=== PATIENT | male | born 1990 ===

== ENCOUNTER 2018-12-19 07:53 | Inpatient (IN) | payer MEDICAID ==
[~2018-12-19] VITALS: Ht 160 cm; Wt 74.0 kg
[~2018-12-19 07:53] MED LIST: ACET325T14 PO; PANT40TA5 PO; SUCR1TAB33 PO
[2018-12-19] MEDS ORDERED: ONDANSETRON 2MG/ML, 2ML ONE (08:22)
[2018-12-19] MEDS ORDERED: MORPHINE SULFATE 4 MG/ML, 1ML ONE ×2 (08:23→09:23)
[2018-12-19] MEDS: MORPHINE SULFATE 4 MG/ML, 1ML IVPush PRN ×6 (08:25→21:25)
[2018-12-19] MEDS ORDERED: ONDANSETRON 2MG/ML, 2ML IVPush ONE (08:30)
[2018-12-19] MEDS ORDERED: SODIUM CHLORIDE FLUSH 10ML SYR IVF ONE ×2 (08:30→10:00)
[2018-12-19 08:35] LABS: BASOPHILS # (AUTO) 0.07 x10^3/uL (0-0.1); BASOPHILS % (AUTO) 1 % (0-1); EOSINOPHILS # (AUTO) 0.02 x10^3/uL (0-0.4); EOSINOPHILS % (AUTO) 0 % (1-7); LYMPHOCYTES # (AUTO) 1.31 x10^3/uL (1-3.4); LYMPHOCYTES % (AUTO) 20 % (22-44); MD NO; MEAN CORPUSCULAR HEMOGLOBIN 29.3 pg (27.5-34.5); MEAN CORPUSCULAR HGB CONC 33.3 g/dL (33.2-36.2); MEAN PLATELET VOLUME 9.4 fL (7.4-10.4); MONOCYTES # (AUTO) 0.24 x10^3/uL (0.2-0.8); MONOCYTES % (AUTO) 4 % (2-9); NEUTROPHILS # (AUTO) 4.93 x10^3/uL (1.8-6.8); NEUTROPHILS % (AUTO) 75 % (42-75); PLATELET COUNT 251 x10^3/uL (130-400); RED BLOOD COUNT 5.57 x10^6/uL (4.38-5.82); RED CELL DISTRIBUTION WIDTH 13.5 % (9.4-14.8)
[2018-12-19 08:42] LABS: INTERNATIONAL NORMALIZED RATIO 0.97 (0.93-1.1); PROTHROMBIN TIME 10.2 Seconds (9.6-11.5)
[2018-12-19 08:46] LABS: ALANINE AMINOTRANSFERASE 56 U/L (12-78); ALBUMIN 4.4 g/dL (3.4-5.0); ANION GAP 12 mmol/L (5-15); CALCIUM 8.9 mg/dL (8.5-10.1); CHLORIDE 103 mmol/L (98-107); CREATININE 1.09 mg/dL (0.7-1.3)
[2018-12-19 08:48] LABS: ALKALINE PHOSPHATASE 107 U/L (45-117); BILIRUBIN,TOTAL 0.5 mg/dL (0.2-1.0); TOTAL PROTEIN 8.6 g/dL (6.4-8.2)
[2018-12-19] MEDS ORDERED: HYDROmorphone 2 MG/ML, 1ML IVPush PRN (10:00)
[2018-12-19] MEDS ORDERED: HYDROmorphone 1 MG/ML, 1ML VIAL ONE (10:13)
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
[2018-12-19 11:03] VITALS: BP 128/93
[2018-12-19] MEDS ORDERED: LABETALOL 5 MG/ML SYRINGE IVPush PRN (12:00)
[2018-12-19] MEDS ORDERED: POLYETHYLENE GLYCOL 17 GM PACKET PO PRN (12:00)
[2018-12-19] MEDS: SENNA/DOCUSATE TABLET PO SCH (12:00)
[2018-12-19] MEDS ORDERED: ONDANSETRON ODT 4 MG PO PRN (12:00)
[2018-12-19] MEDS ORDERED: LORazepam 1MG TABLET PO PRN ×3 (12:30)
[2018-12-19] MEDS ORDERED: CHLORDIAZEPOXIDE 25 MG CAPSULE PO PRN (12:30)
[2018-12-19] MEDS ORDERED: LORazepam 2 MG/ML, 1ML IV PRN ×3 (12:30)
[2018-12-19] MEDS: ONDANSETRON 2MG/ML, 2ML IVPush PRN (12:36)
[2018-12-19 12:45] LABS: FREE T4 (FREE THYROXINE) 0.92 ng/dL (0.76-1.46)
[2018-12-19] MEDS: POTASSIUM CHLORIDE 20 MEQ, MAGNESIUM SULFATE 1 GM, FOLIC ACID 1 MG, THIAMINE 200 MG, MV... IV SCH (13:03)
[2018-12-19] MEDS: LORazepam 2 MG/ML, 1ML IV PRN ×3 (13:14→21:34)
[2018-12-19 15:20] VITALS: BP 128/74
[2018-12-19 18:46] VITALS: BP 152/87
[2018-12-19] MEDS: D5%-LR+KCL 20MEQ 1,000 ML IV SCH (21:34)
[2018-12-20] MEDS: MORPHINE SULFATE 4 MG/ML, 1ML IVPush PRN ×6 (00:43→19:28)
[2018-12-20 00:50] VITALS: BP 165/95
[2018-12-20] MEDS: LORazepam 2 MG/ML, 1ML IV PRN (01:35)
[2018-12-20] MEDS: D5%-LR+KCL 20MEQ 1,000 ML IV SCH ×3 (04:05→22:21)
[2018-12-20 06:05] LABS: ALBUMIN 3.8 g/dL (3.4-5.0); ANION GAP 8 mmol/L (5-15); CALCIUM 9.1 mg/dL (8.5-10.1); CHLORIDE 106 mmol/L (98-107)
[2018-12-20 06:17] LABS: ALANINE AMINOTRANSFERASE 50 U/L (12-78); ALKALINE PHOSPHATASE 89 U/L (45-117); BILIRUBIN,TOTAL 1.3 mg/dL (0.2-1.0); CREATININE 0.94 mg/dL (0.7-1.3); TOTAL PROTEIN 7.5 g/dL (6.4-8.2)
[2018-12-20 06:18] LABS: BASOPHILS # (AUTO) 0.02 x10^3/uL (0-0.1); BASOPHILS % (AUTO) 0 % (0-1); EOSINOPHILS % (AUTO) 0 % (1-7); LYMPHOCYTES % (AUTO) 7 % (22-44); MD NO; MEAN CORPUSCULAR HEMOGLOBIN 29.4 pg (27.5-34.5); MEAN CORPUSCULAR VOLUME 89.1 fL (81-97); MEAN PLATELET VOLUME 9.4 fL (7.4-10.4); MONOCYTES # (AUTO) 0.54 x10^3/uL (0.2-0.8); MONOCYTES % (AUTO) 6 % (2-9); NEUTROPHILS # (AUTO) 8.23 x10^3/uL (1.8-6.8); NEUTROPHILS % (AUTO) 87 % (42-75); PLATELET COUNT 186 x10^3/uL (130-400); RED BLOOD COUNT 5.41 x10^6/uL (4.38-5.82); RED CELL DISTRIBUTION WIDTH 13.5 % (9.4-14.8)
[2018-12-20 07:03] VITALS: BP 145/93
[2018-12-20] MEDS: SENNA/DOCUSATE TABLET PO SCH (07:54)
[2018-12-20] MEDS: ONDANSETRON 2MG/ML, 2ML IVPush PRN (08:11)
[2018-12-20] MEDS ORDERED: ESOMEPRAZOLE 40 MG IV IVPush SCH ×2 (09:00→17:00)
[2018-12-20 11:58] VITALS: BP 144/83
[2018-12-20] MEDS: POTASSIUM CHLORIDE 20 MEQ, MAGNESIUM SULFATE 1 GM, FOLIC ACID 1 MG, THIAMINE 200 MG, MV... IV SCH (12:42)
[2018-12-20 13:25] VITALS: BP 139/89
[2018-12-20] MEDS ORDERED: PANTOPRAZOLE 40 MG IV IVPush SCH (14:00)
[2018-12-20] MEDS ORDERED: OMNIPAQUE 350 MG/ML, 100ML BOTTLE ONE (14:07)
[2018-12-20 19:05] VITALS: BP 135/82
[2018-12-20] MEDS: CHLORDIAZEPOXIDE 25 MG CAPSULE PO SCH (20:25)
[2018-12-20] MEDS: PANTOPRAZOLE 40 MG IV IVPush SCH (20:25)
[2018-12-21] MEDS: LORazepam 2 MG/ML, 1ML IV PRN ×2 (00:31→04:12)
[2018-12-21] MEDS: MORPHINE SULFATE 4 MG/ML, 1ML IVPush PRN ×6 (00:31→23:31)
[2018-12-21 01:25] VITALS: BP 153/89
[2018-12-21] MEDS: D5%-LR+KCL 20MEQ 1,000 ML IV SCH ×3 (04:04→23:24)
[2018-12-21 04:53] LABS: BASOPHILS # (AUTO) 0.03 x10^3/uL (0-0.1); BASOPHILS % (AUTO) 0 % (0-1); EOSINOPHILS # (AUTO) 0.19 x10^3/uL (0-0.4); EOSINOPHILS % (AUTO) 2 % (1-7); LYMPHOCYTES # (AUTO) 1.16 x10^3/uL (1-3.4); LYMPHOCYTES % (AUTO) 15 % (22-44); MD NO; MEAN CORPUSCULAR HGB CONC 33.2 g/dL (33.2-36.2); MEAN CORPUSCULAR VOLUME 90.3 fL (81-97); MEAN PLATELET VOLUME 9.7 fL (7.4-10.4); MONOCYTES # (AUTO) 0.43 x10^3/uL (0.2-0.8); MONOCYTES % (AUTO) 6 % (2-9); NEUTROPHILS # (AUTO) 5.99 x10^3/uL (1.8-6.8); NEUTROPHILS % (AUTO) 77 % (42-75); PLATELET COUNT 153 x10^3/uL (130-400); RED BLOOD COUNT 4.72 x10^6/uL (4.38-5.82); RED CELL DISTRIBUTION WIDTH 13.3 % (9.4-14.8)
[2018-12-21 05:08] LABS: ANION GAP 3 mmol/L (5-15); CALCIUM 8.3 mg/dL (8.5-10.1); CHLORIDE 103 mmol/L (98-107)
[2018-12-21 05:14] LABS: ALANINE AMINOTRANSFERASE 30 U/L (12-78); ALKALINE PHOSPHATASE 75 U/L (45-117); BILIRUBIN,TOTAL 1.4 mg/dL (0.2-1.0); TOTAL PROTEIN 6.1 g/dL (6.4-8.2)
[2018-12-21 07:07] VITALS: BP 146/91
[2018-12-21] MEDS: PANTOPRAZOLE 40 MG IV IVPush SCH ×2 (09:05→21:05)
[2018-12-21] MEDS: CHLORDIAZEPOXIDE 25 MG CAPSULE PO SCH ×2 (09:06→21:05)
[2018-12-21] MEDS: SENNA/DOCUSATE TABLET PO SCH (09:06)
[2018-12-21 12:52] VITALS: BP 133/89
[2018-12-21] MEDS: POTASSIUM CHLORIDE 20 MEQ, MAGNESIUM SULFATE 1 GM, FOLIC ACID 1 MG, THIAMINE 200 MG, MV... IV SCH (15:09)
[2018-12-21 18:44] VITALS: BP 117/73
[2018-12-21] MEDS: LORazepam 1MG TABLET PO PRN (19:38)
[2018-12-22] MEDS: LORazepam 0.5MG TABLET PO PRN ×2 (01:40→11:43)
[2018-12-22 01:55] VITALS: BP 125/75
[2018-12-22] MEDS: MORPHINE SULFATE 4 MG/ML, 1ML IVPush PRN ×5 (04:43→21:20)
[2018-12-22] MEDS: D5%-LR+KCL 20MEQ 1,000 ML IV SCH ×3 (05:34→17:18)
[2018-12-22 06:05] LABS: BASOPHILS # (AUTO) 0.02 x10^3/uL (0-0.1); BASOPHILS % (AUTO) 0 % (0-1); EOSINOPHILS # (AUTO) 0.39 x10^3/uL (0-0.4); EOSINOPHILS % (AUTO) 7 % (1-7); LYMPHOCYTES # (AUTO) 1.15 x10^3/uL (1-3.4); LYMPHOCYTES % (AUTO) 19 % (22-44); MD NO; MEAN CORPUSCULAR HEMOGLOBIN 29.5 pg (27.5-34.5); MEAN CORPUSCULAR HGB CONC 33.3 g/dL (33.2-36.2); MEAN CORPUSCULAR VOLUME 88.8 fL (81-97); MEAN PLATELET VOLUME 9.8 fL (7.4-10.4); MONOCYTES # (AUTO) 0.45 x10^3/uL (0.2-0.8); MONOCYTES % (AUTO) 8 % (2-9); NEUTROPHILS # (AUTO) 3.93 x10^3/uL (1.8-6.8); NEUTROPHILS % (AUTO) 66 % (42-75); PLATELET COUNT 150 x10^3/uL (130-400); RED BLOOD COUNT 4.36 x10^6/uL (4.38-5.82); RED CELL DISTRIBUTION WIDTH 13.5 % (9.4-14.8)
[2018-12-22 06:09] LABS: CHLORIDE 104 mmol/L (98-107)
[2018-12-22 06:16] LABS: ALANINE AMINOTRANSFERASE 29 U/L (12-78); ALBUMIN 2.9 g/dL (3.4-5.0); ALKALINE PHOSPHATASE 76 U/L (45-117); ANION GAP 6 mmol/L (5-15); BILIRUBIN,TOTAL 0.9 mg/dL (0.2-1.0); CALCIUM 8.4 mg/dL (8.5-10.1); CREATININE 0.82 mg/dL (0.7-1.3); TOTAL PROTEIN 6.7 g/dL (6.4-8.2)
[2018-12-22 07:58] VITALS: BP 119/72
[2018-12-22] MEDS: PANTOPRAZOLE 40 MG IV IVPush SCH (08:32)
[2018-12-22] MEDS: CHLORDIAZEPOXIDE 25 MG CAPSULE PO SCH ×2 (08:33→09:00)
[2018-12-22] MEDS: SENNA/DOCUSATE TABLET PO SCH (08:33)
[2018-12-22 12:37] VITALS: BP 135/72
[2018-12-22] MEDS: POTASSIUM CHLORIDE 20 MEQ, MAGNESIUM SULFATE 1 GM, FOLIC ACID 1 MG, THIAMINE 200 MG, MV... IV SCH (15:31)
[2018-12-22] MEDS: PANTOPROZOLE 40MG TABLET PO SCH (17:47)
[2018-12-22 20:15] VITALS: BP 112/73
[2018-12-22] MEDS: LORazepam 1MG TABLET PO PRN (21:31)
[2018-12-23] MEDS: D5%-LR+KCL 20MEQ 1,000 ML IV SCH ×3 (00:43→17:52)
[2018-12-23] MEDS: MORPHINE SULFATE 4 MG/ML, 1ML IVPush PRN ×5 (00:51→21:23)
[2018-12-23 02:38] VITALS: BP 108/72
[2018-12-23 04:46] LABS: BASOPHILS # (AUTO) 0.03 x10^3/uL (0-0.1); BASOPHILS % (AUTO) 1 % (0-1); EOSINOPHILS # (AUTO) 0.38 x10^3/uL (0-0.4); EOSINOPHILS % (AUTO) 8 % (1-7); LYMPHOCYTES # (AUTO) 1.47 x10^3/uL (1-3.4); LYMPHOCYTES % (AUTO) 32 % (22-44); MD NO; MEAN CORPUSCULAR HEMOGLOBIN 29.2 pg (27.5-34.5); MEAN CORPUSCULAR HGB CONC 32.9 g/dL (33.2-36.2); MEAN CORPUSCULAR VOLUME 88.9 fL (81-97); MEAN PLATELET VOLUME 9.5 fL (7.4-10.4); MONOCYTES % (AUTO) 9 % (2-9); NEUTROPHILS # (AUTO) 2.29 x10^3/uL (1.8-6.8); NEUTROPHILS % (AUTO) 50 % (42-75); PLATELET COUNT 179 x10^3/uL (130-400); RED BLOOD COUNT 4.67 x10^6/uL (4.38-5.82); RED CELL DISTRIBUTION WIDTH 13.1 % (9.4-14.8)
[2018-12-23 04:57] LABS: ALBUMIN 3.1 g/dL (3.4-5.0); ANION GAP 7 mmol/L (5-15); CALCIUM 8.9 mg/dL (8.5-10.1); CHLORIDE 104 mmol/L (98-107)
[2018-12-23 05:00] LABS: ALANINE AMINOTRANSFERASE 35 U/L (12-78); ALKALINE PHOSPHATASE 83 U/L (45-117); BILIRUBIN,TOTAL 0.5 mg/dL (0.2-1.0); CREATININE 0.77 mg/dL (0.7-1.3)
[2018-12-23] MEDS: PANTOPROZOLE 40MG TABLET PO SCH ×2 (05:52→17:52)
[2018-12-23] MEDS: SENNA/DOCUSATE TABLET PO SCH (07:35)
[2018-12-23] MEDS: CHLORDIAZEPOXIDE 25 MG CAPSULE PO SCH (07:35)
[2018-12-23 07:56] VITALS: BP 121/78
[2018-12-23] MEDS: THIAMINE 100MG TABLET PO SCH (12:04)
[2018-12-23] MEDS: FOLIC ACID 1 MG TABLET PO SCH (12:04)
[2018-12-23] MEDS: LORazepam 1MG TABLET PO PRN ×2 (12:04→21:46)
[2018-12-23 12:15] VITALS: BP 105/64
[2018-12-23 19:54] VITALS: BP 120/84
[2018-12-24 01:22] VITALS: BP 118/78
[2018-12-24] MEDS: MORPHINE SULFATE 4 MG/ML, 1ML IVPush PRN ×4 (01:51→20:02)
[2018-12-24] MEDS: D5%-LR+KCL 20MEQ 1,000 ML IV SCH ×2 (04:39→11:28)
[2018-12-24] MEDS: PANTOPROZOLE 40MG TABLET PO SCH ×2 (05:52→17:53)
[2018-12-24 05:59] LABS: BASOPHILS # (AUTO) 0.02 x10^3/uL (0-0.1); BASOPHILS % (AUTO) 0 % (0-1); EOSINOPHILS # (AUTO) 0.28 x10^3/uL (0-0.4); EOSINOPHILS % (AUTO) 7 % (1-7); LYMPHOCYTES # (AUTO) 1.33 x10^3/uL (1-3.4); LYMPHOCYTES % (AUTO) 32 % (22-44); MD NO; MEAN CORPUSCULAR HEMOGLOBIN 30.2 pg (27.5-34.5); MEAN CORPUSCULAR HGB CONC 33.6 g/dL (33.2-36.2); MEAN CORPUSCULAR VOLUME 90.1 fL (81-97); MEAN PLATELET VOLUME 9.1 fL (7.4-10.4); MONOCYTES # (AUTO) 0.41 x10^3/uL (0.2-0.8); MONOCYTES % (AUTO) 10 % (2-9); NEUTROPHILS # (AUTO) 2.18 x10^3/uL (1.8-6.8); NEUTROPHILS % (AUTO) 52 % (42-75); PLATELET COUNT 203 x10^3/uL (130-400); RED BLOOD COUNT 4.58 x10^6/uL (4.38-5.82); RED CELL DISTRIBUTION WIDTH 13.4 % (9.4-14.8)
[2018-12-24 06:03] LABS: ALBUMIN 3.2 g/dL (3.4-5.0); ANION GAP 4 mmol/L (5-15); CALCIUM 9.1 mg/dL (8.5-10.1); CHLORIDE 106 mmol/L (98-107)
[2018-12-24 06:07] LABS: ALANINE AMINOTRANSFERASE 47 U/L (12-78); ALKALINE PHOSPHATASE 92 U/L (45-117); BILIRUBIN,TOTAL 0.3 mg/dL (0.2-1.0); CREATININE 0.85 mg/dL (0.7-1.3); TOTAL PROTEIN 7.2 g/dL (6.4-8.2)
[2018-12-24] MEDS: CHLORDIAZEPOXIDE 25 MG CAPSULE PO SCH (08:24)
[2018-12-24] MEDS: THIAMINE 100MG TABLET PO SCH (08:24)
[2018-12-24] MEDS: SENNA/DOCUSATE TABLET PO SCH (08:24)
[2018-12-24] MEDS: FOLIC ACID 1 MG TABLET PO SCH (08:24)
[2018-12-24 08:26] VITALS: BP 123/91
[2018-12-24 14:00] VITALS: BP 111/75
[2018-12-24 19:52] VITALS: BP 106/69
[2018-12-24] MEDS ORDERED: CHLORDIAZEPOXIDE 25 MG CAPSULE PO PRN (23:00)
[2018-12-25] MEDS: MORPHINE SULFATE 4 MG/ML, 1ML IVPush PRN ×3 (01:07→10:59)
[2018-12-25 01:44] VITALS: BP 103/69
[2018-12-25] MEDS: D5%-LR+KCL 20MEQ 1,000 ML IV SCH (05:48)
[2018-12-25] MEDS: PANTOPROZOLE 40MG TABLET PO SCH (06:23)
[2018-12-25 07:25] VITALS: BP 104/67
[2018-12-25] MEDS: FOLIC ACID 1 MG TABLET PO SCH (07:36)
[2018-12-25] MEDS: THIAMINE 100MG TABLET PO SCH (07:36)
[2018-12-25] MEDS: SENNA/DOCUSATE TABLET PO SCH (07:36)
[2018-12-25] MEDS ORDERED: PANT40TA5 PO (11:04)
[2018-12-25] MEDS ORDERED: FOLI-17 PO (11:04)
[2018-12-25] MEDS ORDERED: THIA100T67 PO (11:04)
== END 2018-12-25 13:47 | disposition home or self-care (01) | DRG 440 ==
LOC: ED 10:05 → EDIP 11:28 → 3NE 11:49
PROVIDERS: ADMIT Emergency Medicine; ATTEND Emergency Medicine
DX: K85.20 Alcohol induced acute pancreatitis without necrosis or infection (principal); E86.0 Dehydration; F10.10 Alcohol abuse, uncomplicated; F17.210 Nicotine dependence, cigarettes, uncomplicated; K76.0 Fatty (change of) liver, not elsewhere classified; Y90.9 Presence of alcohol in blood, level not specified
CPT/HCPCS: 36415; 99285; J7121; 74177; 76700; 80053; 80307; 83690; 83735; 84100; 84439; 84443; 85025; 85610; 96374; 96375; 96376; G0378; J1170; J2405; J3411; J3475; J3480; Q9967; C9113; J2060; J2270

== ENCOUNTER 2019-09-20 03:35 | Emergency (ER) | payer SELFPAY ==
[~2019-09-20] VITALS: Ht 162.6 cm; Wt 79.8 kg
[~2019-09-20 03:35] MED LIST changes: +FOLI-17 PO; +THIA100T67 PO
[2019-09-20] MEDS ORDERED: SODIUM CHLORIDE FLUSH 10ML SYR IVF ONE (04:00)
[2019-09-20] MEDS ORDERED: SODIUM CHLORIDE 0.9% 1,000ML IVBOLUS ONE (04:00)
[2019-09-20] MEDS ORDERED: ONDANSETRON 2MG/ML, 2ML IVPush ONE (04:00)
[2019-09-20] MEDS ORDERED: THIAMINE 100 MG/ML, 2ML IM ONE (04:00)
[2019-09-20] MEDS ORDERED: LORazepam 2 MG/ML, 1ML IVPush ONE (04:00)
[2019-09-20] MEDS ORDERED: LORazepam 2 MG/ML, 1ML ONE (04:08)
[2019-09-20] MEDS ORDERED: ONDANSETRON 2MG/ML, 2ML ONE (04:08)
[2019-09-20] MEDS ORDERED: THIAMINE 100MG TABLET ONE (04:08)
[2019-09-20 04:24] LABS: ALANINE AMINOTRANSFERASE 48 U/L (12-78); ALBUMIN 3.7 g/dL (3.4-5.0); ANION GAP 8 mmol/L (5-15); CALCIUM 9.1 mg/dL (8.5-10.1); CHLORIDE 104 mmol/L (98-107); CREATININE 0.86 mg/dL (0.7-1.3)
[2019-09-20] MEDS ORDERED: THIAMINE 100 MG/ML, 2ML ONE (04:24)
[2019-09-20 04:25] LABS: BASOPHILS # (AUTO) 0.04 x10^3/uL (0-0.1); BASOPHILS % (AUTO) 1 % (0-1); EOSINOPHILS # (AUTO) 0.13 x10^3/uL (0-0.4); EOSINOPHILS % (AUTO) 3 % (1-7); LYMPHOCYTES # (AUTO) 1.35 x10^3/uL (1-3.4); LYMPHOCYTES % (AUTO) 32 % (22-44); MD NO; MEAN CORPUSCULAR HEMOGLOBIN 30.8 pg (27.5-34.5); MEAN CORPUSCULAR VOLUME 90.8 fL (81-97); MONOCYTES # (AUTO) 0.39 x10^3/uL (0.2-0.8); MONOCYTES % (AUTO) 9 % (2-9); NEUTROPHILS # (AUTO) 2.34 x10^3/uL (1.8-6.8); NEUTROPHILS % (AUTO) 55 % (42-75); PLATELET COUNT 215 x10^3/uL (130-400); RED BLOOD COUNT 4.81 x10^6/uL (4.38-5.82); RED CELL DISTRIBUTION WIDTH 12.5 % (9.4-14.8)
[2019-09-20 04:27] LABS: ALKALINE PHOSPHATASE 80 U/L (45-117); TOTAL PROTEIN 7.8 g/dL (6.4-8.2)
[2019-09-20 04:43] LABS: CULTURE INDICATED? YES; MICROSCOPIC INDICATED
[2019-09-20 04:46] LABS: AMPHETAMINE SCREEN, URINE Negative (Negative); BARBITURATE SCREEN, URINE Negative (Negative); BENZODIAZEPINE SCREEN, URINE Negative (Negative); CANNABINOID SCREEN, URINE Negative (Negative); COCAINE SCREEN, URINE Negative (Negative); METHADONE SCREEN, URINE Negative (Negative); OPIATE SCREEN, URINE Negative (Negative)
[2019-09-20 04:55] VITALS: BP 143/91
--- NOTE | 2019-09-20 04:56 | NUR ---
PT LYING IN BED, PAIN 8/10 BUQ PAIN. MON[address]OR IN PLACE. PROVIDER NOTIFIED.
--- NOTE | 2019-09-20 04:58 | NUR ---
PT TOLERATING FLUIDS. DENIES N/V AT THIS TIME.
== END 2019-09-20 05:09 ==
LOC: ED 05:00
DX: K85.20 Alcohol induced acute pancreatitis without necrosis or infection (principal)
CPT/HCPCS: 36415; 80053; 80307; 81001; 83690; 85025; 87086; 96372; 96374; 96375; 99284; J2060; J2405; J3411; J7030

== ENCOUNTER 2019-09-20 12:35 | Inpatient (IN) | payer OTHER ==
[~2019-09-20] VITALS: Ht 162.6 cm; Wt 79.5 kg
[2019-09-20] MEDS ORDERED: MORPHINE SULFATE 4 MG/ML, 1ML ONE (13:22)
[2019-09-20] MEDS ORDERED: METOCLOPRAMIDE 5 MG/ML, 2ML ONE (13:22)
[2019-09-20] MEDS ORDERED: DIPHENHYDRAMINE 50 MG/ML, 1ML ONE (13:22)
[2019-09-20] MEDS ORDERED: METOCLOPRAMIDE 5 MG/ML, 2ML IVPush ONE (13:30)
[2019-09-20] MEDS ORDERED: DIPHENHYDRAMINE 50 MG/ML, 1ML IVPush ONE (13:30)
[2019-09-20] MEDS ORDERED: SODIUM CHLORIDE FLUSH 10ML SYR IVF ONE (13:30)
[2019-09-20] MEDS ORDERED: LACTATED RINGERS 1,000 ML IVBOLUS ONE (13:30)
[2019-09-20] MEDS ORDERED: MORPHINE SULFATE 4 MG/ML, 1ML IVPush PRN (13:30)
--- NOTE | 2019-09-20 13:42 | NUR ---
pt presents to ED with c/o generalized abd pain, n/v, persistent since dc this am. pt seen seen in this ED and diagnosed with pancreatitis this am. Pt states last drink was 2 days ago, pt binges etoh intermittently. pt c/o cough and runny nose when screened by this RN, pt has coughed once since arrival. mask in place. EDMD Law notified. pt attached to bp and spo2 monitors, call light in reach, report given to JEMMA Leigh.
--- NOTE | 2019-09-20 13:54 | NUR ---
REPORT RECEIVED FROM ALESHIA EASTON. PT MEDICATED PER EMAR. TAKEN TO CT.
[2019-09-20] MEDS ORDERED: OMNIPAQUE 350 MG/ML, 100ML BOTTLE ONE (14:13)
--- NOTE | 2019-09-20 14:23 | NUR ---
PT REPORTS PAIN NOW TOLERABLE AFTER PAIN MEDS. ALL TESTS RESULTED. PT IS UP FOR RECHECK AT THIS TIME.
--- NOTE | 2019-09-20 14:45 | NUR ---
ADMITTING PROVIDER AT BEDSIDE.
[2019-09-20] MEDS ORDERED: LORazepam 0.5MG TABLET PO PRN (15:00)
[2019-09-20] MEDS ORDERED: ACETAMINOPHEN 325 MG TABLET PO PRN (15:00)
[2019-09-20] MEDS ORDERED: LORazepam 1MG TABLET PO PRN ×2 (15:00)
[2019-09-20] MEDS ORDERED: ONDANSETRON ODT 4 MG PO PRN (15:00)
[2019-09-20] MEDS ORDERED: LORazepam 2 MG/ML, 1ML IV PRN ×3 (15:00)
--- NOTE | 2019-09-20 15:17 | NUR ---
PT AMBULATED TO THE BR W/ A STEADY GAIT.
--- NOTE | 2019-09-20 15:29 | NUR ---
ATTEMPT TO GIVE REPORT. JADA UNAVAILABLE AT THIS TIME. WILL CALL ME BACK.
--- NOTE | 2019-09-20 15:51 | NUR ---
REPORT GIVEN TO JADA EASTON. PT IS READY FOR TRANSPORT AT THIS TIME.
[2019-09-20 16:07] VITALS: BP 149/100
[2019-09-20] MEDS: ONDANSETRON 2MG/ML, 2ML IVPush PRN (16:34)
[2019-09-20] MEDS: MORPHINE SULFATE 4 MG/ML, 1ML IV PRN (16:35)
[2019-09-20] MEDS: SODIUM CHLORIDE 0.9% 1,000 ML IV SCH (16:36)
[2019-09-20 19:05] VITALS: BP 147/88
[2019-09-20] MEDS: KETOROLAC 30 MG/1 ML IM PRN (20:02)
[2019-09-21 00:18] VITALS: BP 138/95
[2019-09-21] MEDS: KETOROLAC 30 MG/1 ML IM PRN ×4 (02:56→21:24)
[2019-09-21] MEDS: SODIUM CHLORIDE 0.9% 1,000 ML IV SCH ×2 (05:20→15:31)
[2019-09-21] MEDS: MORPHINE SULFATE 4 MG/ML, 1ML IV PRN ×7 (06:02→23:55)
[2019-09-21 06:07] LABS: CHLORIDE 103 mmol/L (98-107)
[2019-09-21 06:09] LABS: BASOPHILS # (AUTO) 0.03 x10^3/uL (0-0.1); BASOPHILS % (AUTO) 0 % (0-1); EOSINOPHILS # (AUTO) 0.09 x10^3/uL (0-0.4); EOSINOPHILS % (AUTO) 1 % (1-7); LYMPHOCYTES # (AUTO) 1.07 x10^3/uL (1-3.4); LYMPHOCYTES % (AUTO) 14 % (22-44); MD NO; MEAN CORPUSCULAR HEMOGLOBIN 30.7 pg (27.5-34.5); MEAN CORPUSCULAR HGB CONC 33.6 g/dL (33.2-36.2); MEAN CORPUSCULAR VOLUME 91.5 fL (81-97); MEAN PLATELET VOLUME 9.3 fL (7.4-10.4); MONOCYTES # (AUTO) 0.48 x10^3/uL (0.2-0.8); MONOCYTES % (AUTO) 6 % (2-9); NEUTROPHILS # (AUTO) 6.22 x10^3/uL (1.8-6.8); NEUTROPHILS % (AUTO) 79 % (42-75); PLATELET COUNT 192 x10^3/uL (130-400); RED BLOOD COUNT 4.84 x10^6/uL (4.38-5.82); RED CELL DISTRIBUTION WIDTH 13.1 % (9.4-14.8)
[2019-09-21 06:18] LABS: ANION GAP 8 mmol/L (5-15); CALCIUM 8.7 mg/dL (8.5-10.1)
[2019-09-21 07:57] VITALS: BP 160/108
[2019-09-21] MEDS: ONDANSETRON 2MG/ML, 2ML IVPush PRN ×3 (09:26→21:25)
[2019-09-21 12:55] VITALS: BP 148/101
[2019-09-21] MEDS ORDERED: morphine SULFATE 10 MG/ML, 1ML ONE (13:27)
[2019-09-21 18:55] VITALS: BP 139/87
[2019-09-22] MEDS: SODIUM CHLORIDE 0.9% 1,000 ML IV SCH
[2019-09-22 00:55] VITALS: BP 134/84
[2019-09-22] MEDS: MORPHINE SULFATE 4 MG/ML, 1ML IV PRN ×2 (03:30→08:16)
[2019-09-22] MEDS: ONDANSETRON 2MG/ML, 2ML IVPush PRN (03:30)
[2019-09-22] MEDS: KETOROLAC 30 MG/1 ML IM PRN ×3 (03:31→21:26)
[2019-09-22 05:24] LABS: CHLORIDE 107 mmol/L (98-107)
[2019-09-22 05:29] LABS: ANION GAP 10 mmol/L (5-15); CALCIUM 8.4 mg/dL (8.5-10.1); CREATININE 0.74 mg/dL (0.7-1.3)
[2019-09-22] MEDS: LACTATED RINGERS 1,000 ML IV SCH ×3 (08:03→23:45)
[2019-09-22 08:15] VITALS: BP 135/87
[2019-09-22 12:34] VITALS: BP 121/75
[2019-09-22] MEDS: HYDROmorphone 2 MG/ML, 1ML IVPush PRN (17:16)
[2019-09-22 18:47] VITALS: BP 131/80
[2019-09-23 00:13] VITALS: BP 135/74
[2019-09-23] MEDS: HYDROmorphone 2 MG/ML, 1ML IVPush PRN ×3 (01:15→10:18)
[2019-09-23] MEDS: KETOROLAC 30 MG/1 ML IM PRN ×3 (04:55→22:20)
[2019-09-23 05:12] LABS: BASOPHILS % (AUTO) 2 % (0-1); EOSINOPHILS # (AUTO) 0.44 x10^3/uL (0-0.4); EOSINOPHILS % (AUTO) 7 % (1-7); LYMPHOCYTES # (AUTO) 0.91 x10^3/uL (1-3.4); LYMPHOCYTES % (AUTO) 14 % (22-44); MD NO; MEAN CORPUSCULAR HEMOGLOBIN 30.7 pg (27.5-34.5); MEAN CORPUSCULAR VOLUME 90.3 fL (81-97); MEAN PLATELET VOLUME 8.9 fL (7.4-10.4); MONOCYTES # (AUTO) 0.66 x10^3/uL (0.2-0.8); MONOCYTES % (AUTO) 10 % (2-9); NEUTROPHILS # (AUTO) 4.41 x10^3/uL (1.8-6.8); NEUTROPHILS % (AUTO) 68 % (42-75); PLATELET COUNT 158 x10^3/uL (130-400); RED BLOOD COUNT 4.25 x10^6/uL (4.38-5.82); RED CELL DISTRIBUTION WIDTH 12.7 % (9.4-14.8)
[2019-09-23 05:25] LABS: ANION GAP 7 mmol/L (5-15); CALCIUM 8.5 mg/dL (8.5-10.1); CHLORIDE 104 mmol/L (98-107); CREATININE 0.66 mg/dL (0.7-1.3)
[2019-09-23 06:30] VITALS: BP 119/73
[2019-09-23] MEDS: LACTATED RINGERS 1,000 ML IV SCH ×3 (06:35→20:25)
[2019-09-23 14:22] VITALS: BP 138/89
[2019-09-23] MEDS ORDERED: ENOXAPARIN 40 MG/0.4 ML SQ SCH (15:30)
[2019-09-23 18:43] VITALS: BP 143/76
[2019-09-24 00:40] VITALS: BP 138/83
[2019-09-24] MEDS: LACTATED RINGERS 1,000 ML IV SCH ×2 (03:00→08:55)
[2019-09-24] MEDS: HYDROmorphone 2 MG/ML, 1ML IVPush PRN (03:14)
[2019-09-24 04:27] LABS: ALANINE AMINOTRANSFERASE 30 U/L (12-78); ALBUMIN 2.9 g/dL (3.4-5.0); ANION GAP 8 mmol/L (5-15); CALCIUM 9.1 mg/dL (8.5-10.1); CHLORIDE 105 mmol/L (98-107); CREATININE 0.78 mg/dL (0.7-1.3)
[2019-09-24 04:29] LABS: ALKALINE PHOSPHATASE 68 U/L (45-117); BILIRUBIN,TOTAL 0.6 mg/dL (0.2-1.0)
[2019-09-24 07:42] VITALS: BP 135/87
[2019-09-24] MEDS: KETOROLAC 30 MG/1 ML IM PRN (08:55)
== END 2019-09-24 13:34 | disposition home or self-care (01) | DRG 439 ==
LOC: ED 13:36 → EDIP 14:32 → 3N 16:03
PROVIDERS: ADMIT Internal Medicine; ATTEND Internal Medicine
DX: K85.20 Alcohol induced acute pancreatitis without necrosis or infection (principal); E87.1 Hypo-osmolality and hyponatremia; F10.188 Alcohol abuse with other alcohol-induced disorder; E66.9 Obesity, unspecified; G47.00 Insomnia, unspecified; I10 Essential (primary) hypertension; K76.0 Fatty (change of) liver, not elsewhere classified; Z68.30 Body mass index [BMI] 30.0-30.9, adult
CPT/HCPCS: 36415; 74177; 80048; 80053; 83690; 85025; 96374; 96375; 99285; G0378; J1170; J1650; J1885; J2405; Q0162; Q9967; J1200; J2060; J2270; J2765; J7030; J7120

== ENCOUNTER 2020-03-22 22:22 | Emergency (ER) | payer MEDICAID ==
[~2020-03-22] VITALS: Ht 162.6 cm; Wt 79.7 kg
[~2020-03-22 22:22] MED LIST changes: -PANT40TA5 PO; +PANT40TA6 PO
--- NOTE | 2020-03-22 22:48 | NUR ---
NO ANSWER WHEN CALLED FOR ROOM, NEXT PT ROOMED
--- NOTE | 2020-03-22 23:20 | NUR ---
PT AMBULATORY TO ROOM AT THIS TIME,
[2020-03-22] MEDS ORDERED: SODIUM CHLORIDE 0.9% 1,000ML IVBOLUS ONE (23:30)
[2020-03-22] MEDS ORDERED: ONDANSETRON 2MG/ML, 2ML IVPush ONE (23:30)
--- NOTE | 2020-03-22 23:31 | NUR ---
PT TO ED WITH ABDOMINAL PAIN, REPORTS HX OF PANCREATITIS, REPORTS CHRONIC ETOH ABUSE, LAST DRINK X2 HRS AGO. ATTEMPTED ETOH DETOX AT HOME WITHOUT SUCCESS. REQUEST ADMISSION TO [facility]. PT ALSO REPORTS N/V. DENIES ANY OTHER MEDICAL C/O AT THIS TIME. PT PLACED ON MONITORING, CALL LIGHT WITHIN REACH, ALL SAFETY MEASURES IN PLACE.
[2020-03-22] MEDS ORDERED: ONDANSETRON 2MG/ML, 2ML ONE (23:39)
[2020-03-23 00:11] LABS: BASOPHILS # (AUTO) 0.04 x10^3/uL (0-0.1); BASOPHILS % (AUTO) 1 % (0-1); EOSINOPHILS # (AUTO) 0.11 x10^3/uL (0-0.4); EOSINOPHILS % (AUTO) 2 % (1-7); LYMPHOCYTES % (AUTO) 39 % (22-44); MD NO; MEAN CORPUSCULAR HEMOGLOBIN 30.4 pg (27.5-34.5); MEAN CORPUSCULAR HGB CONC 33.3 g/dL (33.2-36.2); MEAN PLATELET VOLUME 9.2 fL (7.4-10.4); MONOCYTES # (AUTO) 0.44 x10^3/uL (0.2-0.8); MONOCYTES % (AUTO) 8 % (2-9); NEUTROPHILS # (AUTO) 2.64 x10^3/uL (1.8-6.8); NEUTROPHILS % (AUTO) 50 % (42-75); PLATELET COUNT 251 x10^3/uL (130-400); RED BLOOD COUNT 4.73 x10^6/uL (4.38-5.82); RED CELL DISTRIBUTION WIDTH 12.6 % (9.4-14.8)
[2020-03-23 00:23] LABS: ALBUMIN 3.6 g/dL (3.4-5.0); ANION GAP 10 mmol/L (5-15); CALCIUM 8.4 mg/dL (8.5-10.1); CHLORIDE 103 mmol/L (98-107)
[2020-03-23 00:25] LABS: CREATININE 1.11 mg/dL (0.7-1.3)
[2020-03-23 00:26] LABS: ALANINE AMINOTRANSFERASE 71 U/L (12-78); ALKALINE PHOSPHATASE 123 U/L (45-117); BILIRUBIN,TOTAL 0.2 mg/dL (0.2-1.0); TOTAL PROTEIN 8.3 g/dL (6.4-8.2)
[2020-03-23 00:53] VITALS: BP 134/76
== END 2020-03-23 01:30 | disposition home or self-care (01) ==
LOC: ED 23:30
DX: F10.220 Alcohol dependence with intoxication, uncomplicated (principal); Z72.9 Problem related to lifestyle, unspecified; F17.210 Nicotine dependence, cigarettes, uncomplicated; R11.0 Nausea; Y90.0 Blood alcohol level of less than 20 mg/100 ml
CPT/HCPCS: 36415; 80053; 80307; 83690; 85025; 96361; 96374; 99283; 99406; J2405; J7030

== ENCOUNTER 2020-05-22 10:14 | Inpatient (IN) | payer MEDICAID ==
[~2020-05-22] VITALS: Ht 162.6 cm; Wt 73.1 kg
[2020-05-22] MEDS ORDERED: ONDANSETRON 2MG/ML, 2ML ONE (11:15)
[2020-05-22] MEDS ORDERED: MORPHINE SULFATE 4 MG/ML, 1ML ONE ×3 (11:15→22:37)
[2020-05-22] MEDS: MORPHINE SULFATE 4 MG/ML, 1ML IVPush PRN ×2 (11:26→14:03)
--- NOTE | 2020-05-22 11:28 | NUR ---
PT WITH C/O LQ ABD PAIN, STARTING AT 0300, PT WITH DRY HEAVES DENIES V/D. PT WITH HX PANCREATITIS, STATES PAIN IS SIMILAR TO THAT PAIN. PT TO BP/CONT PULSE OX. PIV INITIATED, PT MEDICATED PER MARE
[2020-05-22] MEDS ORDERED: SODIUM CHLORIDE 0.9% 1,000ML IVBOLUS ONE (11:30)
[2020-05-22] MEDS ORDERED: ONDANSETRON 2MG/ML, 2ML IVPush ONE (11:30)
[2020-05-22 11:48] LABS: BASOPHILS % (AUTO) 0 % (0-1); EOSINOPHILS % (AUTO) 1 % (1-7); LYMPHOCYTES % (AUTO) 13 % (22-44); MEAN CORPUSCULAR HEMOGLOBIN 30.6 pg (27.5-34.5); MEAN CORPUSCULAR HGB CONC 33.8 g/dL (33.2-36.2); MEAN PLATELET VOLUME 9.6 fL (7.4-10.4); MONOCYTES % (AUTO) 6 % (2-9); NEUTROPHILS % (AUTO) 80 % (42-75); PLATELET COUNT 213 x10^3/uL (130-400); RED BLOOD COUNT 4.63 x10^6/uL (4.38-5.82); RED CELL DISTRIBUTION WIDTH 13.3 % (9.4-14.8)
[2020-05-22 11:53] LABS: MD NO
[2020-05-22 11:58] LABS: ALBUMIN 3.8 g/dL (3.4-5.0); ANION GAP 8 mmol/L (5-15); CALCIUM 9.1 mg/dL (8.5-10.1); CHLORIDE 107 mmol/L (98-107)
[2020-05-22 12:02] LABS: ALANINE AMINOTRANSFERASE 225 U/L (12-78); ALKALINE PHOSPHATASE 95 U/L (45-117); BILIRUBIN,TOTAL 0.5 mg/dL (0.2-1.0); CREATININE 0.87 mg/dL (0.7-1.3); TOTAL PROTEIN 7.9 g/dL (6.4-8.2)
--- NOTE | 2020-05-22 12:04 | NUR ---
TASK RN: US AT BEDSIDE.
--- NOTE | 2020-05-22 13:19 | NUR ---
PT RESTING ON GURFREDY, UDATED ON POC/PLAN FOR ADMISSION AND NPO STATUS. VSS NO NEEDS AT THIS TIME
[2020-05-22] MEDS ORDERED: ONDANSETRON 2MG/ML, 2ML IVPush PRN (15:00)
[2020-05-22] MEDS ORDERED: ACETAMINOPHEN 325 MG TABLET PO PRN (15:00)
--- NOTE | 2020-05-22 15:26 | NUR ---
ADMITTING MD IN TO [facility] PT. VSS. NAD NOTED
--- NOTE | 2020-05-22 16:31 | NUR ---
REPORT TO RECIEVING RN
[2020-05-22 16:57] VITALS: BP 148/92
[2020-05-22] MEDS: KETOROLAC 30 MG/1 ML IV PRN (17:13)
[2020-05-22] MEDS: LACTATED RINGERS 1,000 ML IV SCH (17:42)
[2020-05-22] MEDS: morphine SULFATE 10 MG/ML, 1ML IVPush PRN ×2 (18:08→22:42)
[2020-05-22 19:45] VITALS: BP 126/77
[2020-05-22 21:16] LABS: AMPHETAMINE SCREEN, URINE Negative (Negative); BARBITURATE SCREEN, URINE Negative (Negative); BENZODIAZEPINE SCREEN, URINE Positive (Negative); CANNABINOID SCREEN, URINE Negative (Negative); COCAINE SCREEN, URINE Negative (Negative); METHADONE SCREEN, URINE Negative (Negative); OPIATE SCREEN, URINE Positive (Negative)
[2020-05-22] MEDS: PANTOPRAZOLE 40 MG IV IVPush SCH (22:42)
[2020-05-23] MEDS: LACTATED RINGERS 1,000 ML IV SCH ×3 (00:05→13:22)
[2020-05-23 01:05] VITALS: BP 128/78
[2020-05-23] MEDS: KETOROLAC 30 MG/1 ML IV PRN ×2 (02:41→15:43)
[2020-05-23 06:10] LABS: BASOPHILS % (AUTO) 0 % (0-1); EOSINOPHILS % (AUTO) 2 % (1-7); LYMPHOCYTES % (AUTO) 19 % (22-44); MEAN CORPUSCULAR HEMOGLOBIN 30.6 pg (27.5-34.5); MEAN CORPUSCULAR HGB CONC 34.3 g/dL (33.2-36.2); MEAN PLATELET VOLUME 9.8 fL (7.4-10.4); MONOCYTES % (AUTO) 7 % (2-9); NEUTROPHILS % (AUTO) 72 % (42-75); PLATELET COUNT 185 x10^3/uL (130-400); RED BLOOD COUNT 4.41 x10^6/uL (4.38-5.82); RED CELL DISTRIBUTION WIDTH 13.6 % (9.4-14.8)
[2020-05-23 06:15] LABS: MD NO
[2020-05-23 06:21] LABS: ANION GAP 9 mmol/L (5-15); CALCIUM 8.6 mg/dL (8.5-10.1); CHLORIDE 107 mmol/L (98-107); CREATININE 0.71 mg/dL (0.7-1.3)
[2020-05-23] MEDS ORDERED: MORPHINE SULFATE 4 MG/ML, 1ML ONE (06:22)
[2020-05-23] MEDS: morphine SULFATE 10 MG/ML, 1ML IVPush PRN ×3 (06:27→21:10)
[2020-05-23 06:31] VITALS: BP 145/93
[2020-05-23 12:41] VITALS: BP 135/82
[2020-05-23 19:28] VITALS: BP 137/89
[2020-05-23] MEDS: PANTOPRAZOLE 40 MG IV IVPush SCH (21:10)
[2020-05-24 00:29] VITALS: BP 114/82
[2020-05-24] MEDS: LACTATED RINGERS 1,000 ML IV SCH ×4 (02:30→23:44)
[2020-05-24] MEDS: morphine SULFATE 10 MG/ML, 1ML IVPush PRN (02:31)
[2020-05-24 07:40] VITALS: BP 134/93
[2020-05-24 14:16] VITALS: BP 135/93
[2020-05-24] MEDS ORDERED: POTASSIUM CHLORIDE 20 MEQ TAB.ER.PRT PO ONE (14:30)
[2020-05-24 20:00] VITALS: BP 143/86
[2020-05-24] MEDS: OXYcodone IR 5MG TABLET PO PRN (20:36)
[2020-05-24] MEDS: PANTOPRAZOLE 40 MG IV IVPush SCH (20:39)
[2020-05-25] MEDS: OXYcodone IR 5MG TABLET PO PRN (01:39)
[2020-05-25 02:13] VITALS: BP 146/97
[2020-05-25] MEDS: LACTATED RINGERS 1,000 ML IV SCH (05:18)
[2020-05-25 07:50] VITALS: BP 139/89
== END 2020-05-25 11:41 | disposition home or self-care (01) | DRG 280 ==
LOC: ED 10:54 → EDIP 12:10 → 3N 16:32 → DCLOUNGE 05-25 11:32
PROVIDERS: ADMIT Hospitalist; ATTEND Hospitalist
DX: K70.10 Alcoholic hepatitis without ascites (principal); K85.20 Alcohol induced acute pancreatitis without necrosis or infection; Z87.19 Personal history of other diseases of the digestive system; F10.10 Alcohol abuse, uncomplicated
CPT/HCPCS: 36415; 76700; 80048; 80053; 80307; 83690; 85025; 96361; 96374; 96375; 96376; 99285; G0378; J1885; J2405; C9113; J2270; J7030; J7120

== ENCOUNTER 2020-09-11 09:50 | Inpatient (IN) | payer MEDICAID ==
[~2020-09-11] VITALS: Ht 162.6 cm; Wt 78.7 kg
[~2020-09-11 09:50] MED LIST changes: -FOLI-17 PO; +FOLI1TAB32 PO
--- NOTE | 2020-09-11 10:20 | NUR ---
pt is a 30m complaining of abd pain since this morning. He has a hx of pancreatitis and his last drink was at midnight last night. He drinks a pint of hard liquor and 4-5 tall cans of alcohol per day. He denies vomiting/diarrhea but is having nausea. Friend at bedside. bp and sp02 monitors in place. call light within reach.
[2020-09-11] MEDS ORDERED: ONDANSETRON 2MG/ML, 2ML ONE (10:53)
[2020-09-11] MEDS ORDERED: LORazepam 2 MG/ML, 1ML ONE (10:53)
[2020-09-11] MEDS ORDERED: LORazepam 2 MG/ML, 1ML IVPush ONE (11:00)
[2020-09-11] MEDS ORDERED: ONDANSETRON 2MG/ML, 2ML IVPush ONE (11:00)
[2020-09-11] MEDS ORDERED: SODIUM CHLORIDE 0.9% 1,000ML IVBOLUS ONE (11:00)
[2020-09-11 11:04] LABS: BASOPHILS % (AUTO) 1 % (0-1); EOSINOPHILS % (AUTO) 1 % (1-7); LYMPHOCYTES % (AUTO) 20 % (22-44); MD NO; MEAN CORPUSCULAR HEMOGLOBIN 30.7 pg (27.5-34.5); MEAN CORPUSCULAR HGB CONC 33.5 g/dL (33.2-36.2); MONOCYTES % (AUTO) 9 % (2-9); NEUTROPHILS % (AUTO) 69 % (42-75); PLATELET COUNT 234 x10^3/uL (130-400); RED BLOOD COUNT 4.76 x10^6/uL (4.38-5.82); RED CELL DISTRIBUTION WIDTH 13.7 % (9.4-14.8)
--- NOTE | 2020-09-11 11:14 | NUR ---
pt resting comfortably on the gurney with friend at bedside. medicated per emar, all monitors in place. warm blankets provided. call light within reach.
[2020-09-11 11:15] LABS: ALBUMIN 3.9 g/dL (3.4-5.0); ANION GAP 6 mmol/L (5-15); CALCIUM 8.6 mg/dL (8.5-10.1); CHLORIDE 104 mmol/L (98-107)
[2020-09-11 11:20] LABS: ALANINE AMINOTRANSFERASE 85 U/L (12-78); ALKALINE PHOSPHATASE 84 U/L (45-117); CREATININE 1.02 mg/dL (0.7-1.3); TOTAL PROTEIN 7.6 g/dL (6.4-8.2)
[2020-09-11] MEDS ORDERED: MORPHINE SULFATE 4 MG/ML, 1ML ONE ×2 (11:54→12:49)
[2020-09-11] MEDS: MORPHINE SULFATE 4 MG/ML, 1ML IVPush PRN ×2 (12:23→12:51)
--- NOTE | 2020-09-11 12:46 | NUR ---
ULTRASOUND AT BEDSIDE.
--- NOTE | 2020-09-11 12:54 | NUR ---
PT COMPLAINING OF ABD PAIN COMING BACK. MEDICATED PER ORDERS, MONITORS IN PLACE. U/S COMPLETE. FRIEND AT BEDSIDE. CALL LIGHT WITHIN REACH.
--- NOTE | 2020-09-11 13:34 | NUR ---
Note undone in [facility] - 09/11/20 at 1435 by [email or web address] CORRECTION TO PREVIOUS NOTE: PT IS GOING BY AIR TRANSPORT Addendum: 09/11/20 at 1424 by STANTON Amendment [email or web address] in [facility] - 09/11/20 at 1435 by [email or web address] PRIOR NOTR ON INCORRECT PATIENT DISREGARD
[2020-09-11] MEDS ORDERED: MORPHINE SULFATE 4 MG/ML, 1ML IVPush PRN (14:00)
--- NOTE | 2020-09-11 14:25 | NUR ---
ALL TESTING RESULTS REVIEWED -PLACED UP FOR RECHECK
--- NOTE | 2020-09-11 14:35 | NUR ---
PT STILL COMPLAINING OF 8/10 ABD PAIN. WILL NOTIFY MD. ALL MONITORS IN PLACE. CALL LIGHT WITHIN REACH.
[2020-09-11] MEDS ORDERED: ENALAPRILAT 1.25 MG/ML, 2ML IVPush PRN (15:00)
[2020-09-11] MEDS ORDERED: ONDANSETRON ODT 4 MG PO PRN (15:00)
[2020-09-11] MEDS: ENOXAPARIN 40 MG/0.4 ML SQ SCH (15:00)
[2020-09-11] MEDS ORDERED: ONDANSETRON 2MG/ML, 2ML IVPush PRN (15:00)
[2020-09-11] MEDS ORDERED: LORazepam 2 MG/ML, 1ML IV PRN ×5 (15:00)
[2020-09-11] MEDS ORDERED: LORazepam 1MG TABLET PO PRN (15:00)
[2020-09-11] MEDS ORDERED: THIAMINE 100MG TABLET PO ONE (15:00)
[2020-09-11] MEDS ORDERED: GABAPENTIN 300 MG CAPSULE PO PRN (15:00)
--- NOTE | 2020-09-11 15:05 | NUR ---
REPORT TO ANA LUISA Hernandez PT GOING TO [phone]
[2020-09-11 15:37] VITALS: BP 160/97
[2020-09-11 15:46] VITALS: BP 160/97
[2020-09-11] MEDS ORDERED: POTASSIUM CHLORIDE IV ONE (16:00)
[2020-09-11] MEDS ORDERED: FOLIC ACID IV ONE (16:00)
[2020-09-11] MEDS ORDERED: [UNRECOGNIZED DRUG - OTHER] IV ONE (16:00)
[2020-09-11] MEDS ORDERED: MAGNESIUM SULFATE IV ONE (16:00)
[2020-09-11] MEDS: morphine SULFATE 10 MG/ML, 1ML IVPush PRN ×3 (16:59→21:08)
[2020-09-11] MEDS: LORazepam 1MG TABLET PO PRN (16:59)
[2020-09-11 18:31] VITALS: BP 152/99
[2020-09-11] MEDS: LORazepam 0.5MG TABLET PO PRN (19:43)
[2020-09-12 00:28] VITALS: BP 160/90
[2020-09-12] MEDS: morphine SULFATE 10 MG/ML, 1ML IVPush PRN ×6 (01:11→20:47)
[2020-09-12] MEDS: LORazepam 1MG TABLET PO PRN (01:11)
[2020-09-12 05:15] LABS: BASOPHILS % (AUTO) 1 % (0-1); EOSINOPHILS % (AUTO) 1 % (1-7); LYMPHOCYTES % (AUTO) 15 % (22-44); MEAN CORPUSCULAR HEMOGLOBIN 31.2 pg (27.5-34.5); MEAN CORPUSCULAR HGB CONC 34.2 g/dL (33.2-36.2); MEAN PLATELET VOLUME 9.3 fL (7.4-10.4); MONOCYTES % (AUTO) 13 % (2-9); NEUTROPHILS % (AUTO) 71 % (42-75); PLATELET COUNT 233 x10^3/uL (130-400); RED BLOOD COUNT 4.95 x10^6/uL (4.38-5.82); RED CELL DISTRIBUTION WIDTH 13.4 % (9.4-14.8)
[2020-09-12 05:27] LABS: ALANINE AMINOTRANSFERASE 68 U/L (12-78); ALBUMIN 3.7 g/dL (3.4-5.0); ANION GAP 4 mmol/L (5-15); CALCIUM 8.6 mg/dL (8.5-10.1); CHLORIDE 102 mmol/L (98-107); CREATININE 0.81 mg/dL (0.7-1.3)
[2020-09-12 05:28] LABS: ALKALINE PHOSPHATASE 86 U/L (45-117); BILIRUBIN,TOTAL 1.1 mg/dL (0.2-1.0); TOTAL PROTEIN 7.4 g/dL (6.4-8.2)
[2020-09-12 05:35] LABS: MD NO
[2020-09-12] MEDS: MULTIVITAMINS/MINERALS TABLET PO SCH (07:36)
[2020-09-12] MEDS: PANTOPRAZOLE 40MG TABLET PO SCH (07:36)
[2020-09-12 07:45] VITALS: BP 142/93
[2020-09-12] MEDS ORDERED: [UNRECOGNIZED DRUG - OTHER] IV SCH (11:30)
[2020-09-12] MEDS ORDERED: [UNRECOGNIZED DRUG - REMARK] MC SCH (12:00)
[2020-09-12] MEDS: D5%-0.45NACL+KCL 20MEQ 1,000 ML IV SCH ×2 (12:32→20:47)
[2020-09-12 13:52] VITALS: BP 132/90
[2020-09-12] MEDS: ACETAMINOPHEN 325 MG TABLET PO PRN (14:25)
[2020-09-12] MEDS: ENOXAPARIN 40 MG/0.4 ML SQ SCH (14:25)
[2020-09-12 19:04] VITALS: BP 136/79
[2020-09-12] MEDS: LORazepam 0.5MG TABLET PO PRN (20:47)
[2020-09-13 00:31] VITALS: BP 136/88
[2020-09-13] MEDS: morphine SULFATE 10 MG/ML, 1ML IVPush PRN ×4 (00:40→20:27)
[2020-09-13] MEDS: D5%-0.45NACL+KCL 20MEQ 1,000 ML IV SCH ×4 (02:40→23:38)
[2020-09-13 05:20] LABS: ALBUMIN 3.4 g/dL (3.4-5.0); ANION GAP 5 mmol/L (5-15); CALCIUM 8.8 mg/dL (8.5-10.1); CHLORIDE 104 mmol/L (98-107)
[2020-09-13 05:24] LABS: ALANINE AMINOTRANSFERASE 49 U/L (12-78); ALKALINE PHOSPHATASE 69 U/L (45-117); BILIRUBIN,TOTAL 0.7 mg/dL (0.2-1.0); CREATININE 0.82 mg/dL (0.7-1.3); TOTAL PROTEIN 7.2 g/dL (6.4-8.2)
[2020-09-13] MEDS: PANTOPRAZOLE 40MG TABLET PO SCH (08:29)
[2020-09-13] MEDS: MULTIVITAMINS/MINERALS TABLET PO SCH (08:29)
[2020-09-13 08:30] VITALS: BP 107/62
[2020-09-13 12:03] VITALS: BP 117/76
[2020-09-13] MEDS: ACETAMINOPHEN 325 MG TABLET PO PRN ×2 (13:11→22:23)
[2020-09-13] MEDS: ENOXAPARIN 40 MG/0.4 ML SQ SCH (14:23)
[2020-09-13 20:04] VITALS: BP 135/86
[2020-09-14] MEDS: morphine SULFATE 10 MG/ML, 1ML IVPush PRN ×2 (00:06→05:34)
[2020-09-14 02:12] VITALS: BP 131/83
[2020-09-14] MEDS: D5%-0.45NACL+KCL 20MEQ 1,000 ML IV SCH ×3 (05:07→20:17)
[2020-09-14 05:50] LABS: BASOPHILS % (AUTO) 1 % (0-1); EOSINOPHILS % (AUTO) 5 % (1-7); LYMPHOCYTES % (AUTO) 39 % (22-44); MD NO; MEAN CORPUSCULAR HGB CONC 33.5 g/dL (33.2-36.2); MEAN PLATELET VOLUME 9.4 fL (7.4-10.4); MONOCYTES % (AUTO) 15 % (2-9); NEUTROPHILS % (AUTO) 41 % (42-75); PLATELET COUNT 220 x10^3/uL (130-400); RED CELL DISTRIBUTION WIDTH 13.3 % (9.4-14.8)
[2020-09-14 06:00] LABS: CALCIUM 8.8 mg/dL (8.5-10.1); CHLORIDE 106 mmol/L (98-107)
[2020-09-14 06:03] LABS: ANION GAP 4 mmol/L (5-15)
[2020-09-14 08:20] VITALS: BP 139/82
[2020-09-14] MEDS: PANTOPRAZOLE 40MG TABLET PO SCH (08:58)
[2020-09-14] MEDS: MULTIVITAMINS/MINERALS TABLET PO SCH (08:58)
[2020-09-14] MEDS: ACETAMINOPHEN 325 MG TABLET PO PRN ×2 (12:06→20:17)
[2020-09-14 12:45] VITALS: BP 113/75
[2020-09-14] MEDS: THIAMINE 100 MG in SODIUM CHLORIDE 0.9% 50 ML IV SCH (12:52)
[2020-09-14] MEDS: CYANOCOBALAMIN 1,000 MCG/ML, 1ML IM SCH (15:40)
[2020-09-14] MEDS: ENOXAPARIN 40 MG/0.4 ML SQ SCH (15:41)
[2020-09-14 19:06] VITALS: BP 130/90
[2020-09-14 19:08] VITALS: BP 126/60
[2020-09-15 01:20] VITALS: BP 116/77
[2020-09-15] MEDS: D5%-0.45NACL+KCL 20MEQ 1,000 ML IV SCH ×3 (02:52→15:04)
[2020-09-15 05:06] LABS: BASOPHILS % (AUTO) 1 % (0-1); EOSINOPHILS % (AUTO) 3 % (1-7); LYMPHOCYTES % (AUTO) 39 % (22-44); MEAN CORPUSCULAR HEMOGLOBIN 31.4 pg (27.5-34.5); MEAN CORPUSCULAR HGB CONC 34.2 g/dL (33.2-36.2); MEAN PLATELET VOLUME 9.3 fL (7.4-10.4); MONOCYTES % (AUTO) 12 % (2-9); NEUTROPHILS % (AUTO) 46 % (42-75); PLATELET COUNT 254 x10^3/uL (130-400); RED BLOOD COUNT 4.63 x10^6/uL (4.38-5.82); RED CELL DISTRIBUTION WIDTH 13.5 % (9.4-14.8)
[2020-09-15 05:08] LABS: MD NO
[2020-09-15 05:13] LABS: ALBUMIN 3.6 g/dL (3.4-5.0); ANION GAP 4 mmol/L (5-15); CHLORIDE 109 mmol/L (98-107)
[2020-09-15 05:17] LABS: ALANINE AMINOTRANSFERASE 80 U/L (12-78); ALKALINE PHOSPHATASE 74 U/L (45-117); BILIRUBIN,TOTAL 0.3 mg/dL (0.2-1.0); CREATININE 0.84 mg/dL (0.7-1.3); TOTAL PROTEIN 7.5 g/dL (6.4-8.2)
[2020-09-15 07:05] VITALS: BP 121/75
[2020-09-15] MEDS: PANTOPRAZOLE 40MG TABLET PO SCH (07:22)
[2020-09-15] MEDS ORDERED: FOLIC ACID 1 MG TABLET PO SCH (09:00)
[2020-09-15] MEDS: MULTIVITAMINS/MINERALS TABLET PO SCH (09:15)
[2020-09-15] MEDS: CYANOCOBALAMIN 1,000 MCG/ML, 1ML IM SCH (09:15)
[2020-09-15] MEDS: THIAMINE 100 MG in SODIUM CHLORIDE 0.9% 50 ML IV SCH (11:57)
[2020-09-15 12:29] VITALS: BP 130/84
[2020-09-15] MEDS ORDERED: CYAN50004 PO (14:28)
[2020-09-15] MEDS: ENOXAPARIN 40 MG/0.4 ML SQ SCH (15:00)
== END 2020-09-15 15:28 | disposition home or self-care (01) | DRG 282 ==
LOC: ED 11:46 → 4WST 14:32 → SUATTDRO 14:42 → DCLOUNGE 09-15 14:23
PROVIDERS: ADMIT Hospitalist; ATTEND Internal Medicine
DX: K85.20 Alcohol induced acute pancreatitis without necrosis or infection (principal); E53.8 Deficiency of other specified B group vitamins; E66.9 Obesity, unspecified; Z68.29 Body mass index [BMI] 29.0-29.9, adult; F10.239 Alcohol dependence with withdrawal, unspecified; G62.9 Polyneuropathy, unspecified; K70.0 Alcoholic fatty liver; I10 Essential (primary) hypertension; Z82.49 Family history of ischemic heart disease and other diseases of the circulatory system; Z83.3 Family history of diabetes mellitus; Z82.5 Family history of asthma and other chronic lower respiratory diseases
CPT/HCPCS: 36415; 76700; 80048; 80053; 82607; 83615; 83690; 83735; 84100; 85025; 96374; 96375; G0378; J1650; J2405; J3411; J3475; J3480; J2060; J2270; J3420; J7030

== ENCOUNTER 2021-01-25 11:16 | Inpatient (IN) | payer MEDICAID ==
[~2021-01-25] VITALS: Ht 162.6 cm; Wt 81.2 kg
[~2021-01-25 11:16] MED LIST changes: +CYAN50004 PO
--- NOTE | 2021-01-25 11:30 | NUR ---
FIRST CONTACT: "PANCREATITIS SINCE 01/23, DC'D FROM [facility] LAST NIGHT FOR SAME", LAST DRINK 3-4 DAYS AGO". PT TO ROOM WITH STEADY GAIT. POSTIONED TO COMFORT IN BED. ATTACHED TO MONITORS. VSS. NADN. C/O NAUSEA.
--- NOTE | 2021-01-25 11:47 | NUR ---
DR. TSAI TO BEDSIDE FOR EVALUATION.
[2021-01-25] MEDS ORDERED: FAMOTIDINE 20 MG/2 ML IVPush ONE (12:00)
[2021-01-25] MEDS ORDERED: SODIUM CHLORIDE FLUSH 10ML SYR IVF ONE (12:00)
[2021-01-25] MEDS ORDERED: HYDROmorphone 1 MG/ML, 1ML INJ IV ONE (12:00)
[2021-01-25] MEDS ORDERED: ONDANSETRON 2MG/ML, 2ML IVPush ONE (12:00)
[2021-01-25] MEDS ORDERED: SODIUM CHLORIDE 0.9% 1,000ML IVBOLUS ONE (12:00)
[2021-01-25 12:11] LABS: BASOPHILS % (AUTO) 1 % (0-1); EOSINOPHILS % (AUTO) 2 % (1-7); LYMPHOCYTES % (AUTO) 20 % (22-44); MEAN CORPUSCULAR HEMOGLOBIN 30.4 pg (27.5-34.5); MEAN CORPUSCULAR HGB CONC 34.2 g/dL (33.2-36.2); MEAN PLATELET VOLUME 9.8 fL (7.4-10.4); MONOCYTES % (AUTO) 9 % (2-9); NEUTROPHILS % (AUTO) 69 % (42-75); PLATELET COUNT 209 x10^3/uL (130-400); RED BLOOD COUNT 4.83 x10^6/uL (4.38-5.82); RED CELL DISTRIBUTION WIDTH 14.1 % (9.4-14.8)
[2021-01-25 12:19] LABS: ALANINE AMINOTRANSFERASE 183 U/L (12-78); ALBUMIN 4.4 g/dL (3.4-5.0); ANION GAP 5 mmol/L (5-15); CALCIUM 9.5 mg/dL (8.5-10.1); CHLORIDE 108 mmol/L (98-107); CREATININE 1.03 mg/dL (0.7-1.3)
[2021-01-25 12:21] LABS: ALKALINE PHOSPHATASE 78 U/L (45-117); BILIRUBIN,TOTAL 0.7 mg/dL (0.2-1.0); TOTAL PROTEIN 8.4 g/dL (6.4-8.2)
[2021-01-25] MEDS ORDERED: HYDROmorphone 1 MG/ML, 1ML INJ ONE (12:28)
[2021-01-25] MEDS ORDERED: ONDANSETRON 2MG/ML, 2ML ONE (12:28)
--- NOTE | 2021-01-25 12:33 | NUR ---
pt medicated per emar. vss. lupen.
--- NOTE | 2021-01-25 13:08 | NUR ---
pt up to bathroom with steady gait. vss, nadn
[2021-01-25] MEDS: ENOXAPARIN 40 MG/0.4 ML SQ SCH (13:29)
[2021-01-25] MEDS ORDERED: morphine SULFATE 10 MG/ML, 1ML IVPush PRN (13:30)
[2021-01-25 14:25] VITALS: BP 158/98
[2021-01-25] MEDS ORDERED: METOCLOPRAMIDE 5 MG/ML, 2ML IVPush PRN (14:30)
[2021-01-25] MEDS ORDERED: LORazepam 2 MG/ML, 1ML IVPush PRN (14:30)
[2021-01-25] MEDS: FOLIC ACID 1 MG, THIAMINE 200 MG, MVI ADULT 10 ML in DEXTROSE 5% 1,000 ML IV SCH (15:26)
[2021-01-25] MEDS: SODIUM CHLORIDE 0.9% 1,000 ML IV SCH (15:27)
[2021-01-25] MEDS: HYDROmorphone 2 MG/ML, 1ML IVPush PRN ×2 (17:35→21:57)
[2021-01-25 21:44] VITALS: BP 134/88
[2021-01-25] MEDS: FAMOTIDINE 20 MG/2 ML IVPush SCH (21:58)
[2021-01-26 02:15] VITALS: BP 123/77
[2021-01-26] MEDS: ONDANSETRON 2MG/ML, 2ML IVPush PRN ×2 (02:18→20:03)
[2021-01-26] MEDS: SODIUM CHLORIDE 0.9% 1,000 ML IV SCH ×4 (02:18→22:50)
[2021-01-26] MEDS: HYDROmorphone 2 MG/ML, 1ML IVPush PRN ×4 (02:18→20:04)
[2021-01-26 06:31] LABS: BASOPHILS % (AUTO) 1 % (0-1); EOSINOPHILS % (AUTO) 2 % (1-7); LYMPHOCYTES % (AUTO) 28 % (22-44); MEAN CORPUSCULAR HEMOGLOBIN 30.6 pg (27.5-34.5); MEAN PLATELET VOLUME 9.6 fL (7.4-10.4); MONOCYTES % (AUTO) 13 % (2-9); NEUTROPHILS % (AUTO) 56 % (42-75); PLATELET COUNT 182 x10^3/uL (130-400); RED BLOOD COUNT 4.39 x10^6/uL (4.38-5.82); RED CELL DISTRIBUTION WIDTH 13.9 % (9.4-14.8)
[2021-01-26 06:35] LABS: ALBUMIN 3.3 g/dL (3.4-5.0); ANION GAP 3 mmol/L (5-15); CALCIUM 8.3 mg/dL (8.5-10.1); CHLORIDE 108 mmol/L (98-107)
[2021-01-26 06:43] LABS: ALANINE AMINOTRANSFERASE 129 U/L (12-78); ALKALINE PHOSPHATASE 63 U/L (45-117); BILIRUBIN,TOTAL 0.6 mg/dL (0.2-1.0); CHOL/HDL RATIO 3.4; CHOLESTEROL, TOTAL 196 mg/dL (140-239); CREATININE 0.73 mg/dL (0.7-1.3); HDL CHOL % 30 % (26-37); HDL CHOLESTEROL (DIRECT) 58 mg/dL (40-60); LDL CHOLESTEROL,CALCULATED 121 mg/dL (54-169); LDL/HDL RATIO 2.1 (0.5-3.0); TOTAL PROTEIN 6.9 g/dL (6.4-8.2); TRIGLYCERIDES 87 mg/dL (50-200); VLDL CHOLESTEROL 17 mg/dL (0-25)
[2021-01-26 07:02] VITALS: BP 119/74
[2021-01-26 12:23] VITALS: BP 116/74
[2021-01-26] MEDS: ENOXAPARIN 40 MG/0.4 ML SQ SCH ×2 (13:30→20:13)
[2021-01-26] MEDS: FOLIC ACID 1 MG, THIAMINE 200 MG, MVI ADULT 10 ML in DEXTROSE 5% 1,000 ML IV SCH (16:09)
[2021-01-26 19:19] VITALS: BP 128/74
[2021-01-26] MEDS: FAMOTIDINE 20 MG/2 ML IVPush SCH (20:04)
[2021-01-27 01:07] VITALS: BP 117/74
[2021-01-27] MEDS: HYDROmorphone 2 MG/ML, 1ML IVPush PRN ×2 (01:17→06:13)
[2021-01-27] MEDS: SODIUM CHLORIDE 0.9% 1,000 ML IV SCH (05:21)
[2021-01-27 07:14] VITALS: BP 122/69
[2021-01-27 08:22] LABS: ANION GAP 4 mmol/L (5-15); CALCIUM 8.4 mg/dL (8.5-10.1); CHLORIDE 105 mmol/L (98-107)
[2021-01-27 08:23] LABS: CREATININE 0.81 mg/dL (0.7-1.3)
[2021-01-27 12:41] VITALS: BP 127/79
[2021-01-27] MEDS: FOLIC ACID 1 MG, THIAMINE 200 MG, MVI ADULT 10 ML in DEXTROSE 5% 1,000 ML IV SCH (13:40)
[2021-01-27] MEDS: ENOXAPARIN 40 MG/0.4 ML SQ SCH (13:41)
== END 2021-01-27 15:36 | disposition home or self-care (01) | DRG 439 ==
LOC: ED 11:58 → SUATTDRO 13:05 → EDIP 13:08 → 3N 14:21
PROVIDERS: ADMIT Family Medicine; ATTEND Hospitalist
DX: K85.20 Alcohol induced acute pancreatitis without necrosis or infection (principal); K56.7 Ileus, unspecified; K29.00 Acute gastritis without bleeding; K29.20 Alcoholic gastritis without bleeding; K70.10 Alcoholic hepatitis without ascites; Z83.3 Family history of diabetes mellitus; E88.09 Other disorders of plasma-protein metabolism, not elsewhere classified; R74.8 Abnormal levels of other serum enzymes
CPT/HCPCS: 36415; 74018; 80048; 80053; 80061; 80320; 82150; 83615; 83690; 83735; 84100; 84443; 85025; 96361; 96374; 96375; G0378; J1170; J1650; J2405; J3411; J7070; G0480; J2270; J7030

== ENCOUNTER 2021-02-13 03:49 | Inpatient (IN) | payer MEDICAID ==
[~2021-02-13] VITALS: Ht 162.6 cm; Wt 80.3 kg
[2021-02-13 04:20] LABS: BASOPHILS % (AUTO) 1 % (0-1); EOSINOPHILS % (AUTO) 2 % (1-7); LYMPHOCYTES % (AUTO) 27 % (22-44); MEAN CORPUSCULAR HEMOGLOBIN 30.9 pg (27.5-34.5); MEAN PLATELET VOLUME 9.1 fL (7.4-10.4); MONOCYTES % (AUTO) 10 % (2-9); NEUTROPHILS % (AUTO) 60 % (42-75); PLATELET COUNT 257 x10^3/uL (130-400); RED CELL DISTRIBUTION WIDTH 13.9 % (9.4-14.8)
[2021-02-13] MEDS ORDERED: ONDANSETRON 2MG/ML, 2ML ONE (04:25)
[2021-02-13] MEDS ORDERED: MORPHINE SULFATE 4 MG/ML, 1ML ONE (04:25)
[2021-02-13] MEDS ORDERED: SODIUM CHLORIDE 0.9% 1,000ML IVBOLUS ONE (04:30)
[2021-02-13] MEDS ORDERED: MORPHINE SULFATE 4 MG/ML, 1ML IVPush PRN ×2 (04:30→05:00)
[2021-02-13] MEDS ORDERED: ONDANSETRON 2MG/ML, 2ML IVPush ONE (04:30)
[2021-02-13 04:34] LABS: ALANINE AMINOTRANSFERASE 110 U/L (12-78); ALBUMIN 4.2 g/dL (3.4-5.0); ANION GAP 9 mmol/L (5-15); CALCIUM 9.7 mg/dL (8.5-10.1); CHLORIDE 99 mmol/L (98-107); CREATININE 1.02 mg/dL (0.7-1.3)
[2021-02-13 04:36] LABS: ALKALINE PHOSPHATASE 110 U/L (45-117); BILIRUBIN,TOTAL 1.4 mg/dL (0.2-1.0); TOTAL PROTEIN 8.6 g/dL (6.4-8.2)
--- NOTE | 2021-02-13 04:38 | NUR ---
PATIENT REPORTS ABDOMINAL PAIN STARTING 02/11/21 AT APPROX 0600. PATIENT REPORTS PAIN HAS BE INCREASING IN INTENSITY SINCE. PAIN IS IN EPIGASTRIC REGION AND IS 8/10. PATIENT REPORTS NAUSEA, DENIES VOMITING, ENDORCES HEADACHE, ANXIETY, AND SLIGHT TREMORS. PATIENT PLACED ON MONITOR, IV STARTED, LABS DRAWN, PATIENT MEDICATED PER AUG.
[2021-02-13] MEDS ORDERED: ONDANSETRON 2MG/ML, 2ML IVPush PRN ×2 (05:00→06:00)
[2021-02-13] MEDS ORDERED: SODIUM CHLORIDE 0.9% 1,000 ML IV ONE (05:00)
--- NOTE | 2021-02-13 05:21 | NUR ---
Pt to be admitted to Surgical, room 450. Report called to Chrissy.
[2021-02-13] MEDS ORDERED: ACETAMINOPHEN 325 MG TABLET PO PRN (06:00)
[2021-02-13] MEDS ORDERED: LORazepam 0.5MG TABLET PO PRN (06:00)
[2021-02-13] MEDS ORDERED: LORazepam 1MG TABLET PO PRN (06:00)
[2021-02-13] MEDS ORDERED: MELATONIN 5 MG TABLET PO PRN (06:00)
[2021-02-13] MEDS ORDERED: LORazepam 2 MG/ML, 1ML IV PRN ×4 (06:00)
[2021-02-13] MEDS ORDERED: LACTATED RINGERS 1,000 ML IV SCH (06:00)
[2021-02-13 06:20] VITALS: BP 164/98
[2021-02-13] MEDS: LORazepam 1MG TABLET PO PRN ×4 (06:40→18:35)
[2021-02-13] MEDS: HYDROmorphone 2 MG/ML, 1ML IVPush PRN ×5 (07:35→21:23)
[2021-02-13] MEDS: ENOXAPARIN 40 MG/0.4 ML SQ SCH (07:35)
[2021-02-13] MEDS: POTASSIUM CHLORIDE 20 MEQ, MAGNESIUM SULFATE 1 GM, FOLIC ACID 1 MG, THIAMINE 200 MG, MV... IV SCH (08:08)
[2021-02-13] MEDS: FAMOTIDINE 20 MG/2 ML IVPush SCH ×2 (08:08→21:23)
[2021-02-13 11:53] VITALS: BP 143/92
[2021-02-13 14:38] VITALS: BP 164/97
[2021-02-13] MEDS: POTASSIUM CHLORIDE 30 MEQ in LACTATED RINGERS 1,000 ML IV SCH (18:22)
[2021-02-13 20:04] VITALS: BP 153/99
[2021-02-14] VITALS (7 sets, daily range): BP systolic 122–165; BP diastolic 78–103
[2021-02-14] MEDS: LORazepam 1MG TABLET PO PRN ×6 (00:15→22:50)
[2021-02-14] MEDS: LABETALOL 5MG/ML, 20ML IVPush PRN (00:21)
[2021-02-14] MEDS: POTASSIUM CHLORIDE 30 MEQ in LACTATED RINGERS 1,000 ML IV SCH (00:48)
[2021-02-14] MEDS: HYDROmorphone 2 MG/ML, 1ML IVPush PRN ×8 (00:48→23:36)
[2021-02-14] MEDS ORDERED: DIAZEPAM 5 MG TABLET PO SCH (06:00)
[2021-02-14 06:19] LABS: ANION GAP 4 mmol/L (5-15); CALCIUM 9.4 mg/dL (8.5-10.1); CHLORIDE 99 mmol/L (98-107); CREATININE 0.72 mg/dL (0.7-1.3)
[2021-02-14 06:21] LABS: BASOPHILS % (AUTO) 0 % (0-1); EOSINOPHILS % (AUTO) 1 % (1-7); LYMPHOCYTES % (AUTO) 17 % (22-44); MEAN CORPUSCULAR HEMOGLOBIN 30.7 pg (27.5-34.5); MEAN CORPUSCULAR HGB CONC 34.3 g/dL (33.2-36.2); MEAN PLATELET VOLUME 9.7 fL (7.4-10.4); MONOCYTES % (AUTO) 10 % (2-9); NEUTROPHILS % (AUTO) 72 % (42-75); PLATELET COUNT 204 x10^3/uL (130-400); RED CELL DISTRIBUTION WIDTH 13.5 % (9.4-14.8)
[2021-02-14] MEDS: ENOXAPARIN 40 MG/0.4 ML SQ SCH (07:57)
[2021-02-14] MEDS: FAMOTIDINE 20 MG/2 ML IVPush SCH ×2 (07:57→20:30)
[2021-02-14] MEDS: POTASSIUM CHLORIDE 20 MEQ, MAGNESIUM SULFATE 1 GM, FOLIC ACID 1 MG, THIAMINE 200 MG, MV... IV SCH (09:55)
[2021-02-14] MEDS: SODIUM CHLORIDE 0.9% 1,000 ML IV SCH ×2 (15:53→22:51)
[2021-02-15 00:03] VITALS: BP 131/83
[2021-02-15] MEDS: LORazepam 1MG TABLET PO PRN ×3 (02:38→21:42)
[2021-02-15] MEDS: HYDROmorphone 2 MG/ML, 1ML IVPush PRN ×5 (05:30→21:34)
[2021-02-15] MEDS: SODIUM CHLORIDE 0.9% 1,000 ML IV SCH ×4 (05:30→21:34)
[2021-02-15 05:52] LABS: CHLORIDE 103 mmol/L (98-107)
[2021-02-15 05:58] LABS: ALANINE AMINOTRANSFERASE 69 U/L (12-78); ALBUMIN 3.1 g/dL (3.4-5.0); ALKALINE PHOSPHATASE 86 U/L (45-117); ANION GAP 7 mmol/L (5-15); BILIRUBIN,TOTAL 0.5 mg/dL (0.2-1.0); CALCIUM 9.2 mg/dL (8.5-10.1); TOTAL PROTEIN 7.1 g/dL (6.4-8.2)
[2021-02-15 06:50] VITALS: BP 134/88
[2021-02-15] MEDS: THIAMINE 100MG TABLET PO SCH (08:36)
[2021-02-15] MEDS: ENOXAPARIN 40 MG/0.4 ML SQ SCH (08:36)
[2021-02-15] MEDS: FOLIC ACID 1 MG TABLET PO SCH (08:36)
[2021-02-15] MEDS: FAMOTIDINE 20 MG/2 ML IVPush SCH ×2 (08:36→21:33)
[2021-02-15 14:30] VITALS: BP 130/85
[2021-02-15 20:07] VITALS: BP 134/86
[2021-02-16 01:54] VITALS: BP_SYST 146; BP_SYST 151; BP_DIAS 100; BP_DIAS 99
[2021-02-16] MEDS: HYDROmorphone 2 MG/ML, 1ML IVPush PRN ×6 (02:22→22:41)
[2021-02-16] MEDS: SODIUM CHLORIDE 0.9% 1,000 ML IV SCH ×5 (02:26→23:16)
[2021-02-16] MEDS: LORazepam 1MG TABLET PO PRN ×5 (02:26→16:23)
[2021-02-16 04:08] VITALS: BP 143/92
[2021-02-16 06:49] VITALS: BP 137/92
[2021-02-16] MEDS: FAMOTIDINE 20 MG/2 ML IVPush SCH ×2 (08:54→21:04)
[2021-02-16] MEDS: FOLIC ACID 1 MG TABLET PO SCH (08:54)
[2021-02-16] MEDS: ENOXAPARIN 40 MG/0.4 ML SQ SCH (08:54)
[2021-02-16] MEDS: THIAMINE 100MG TABLET PO SCH (08:54)
[2021-02-16] MEDS: POLYETHYLENE GLYCOL 17 GM PACKET PO PRN (11:14)
[2021-02-16 12:23] VITALS: BP 144/72
[2021-02-16 21:05] VITALS: BP 151/102
[2021-02-16] MEDS: LABETALOL 5MG/ML, 20ML IVPush PRN (21:11)
[2021-02-16 22:45] VITALS: BP 138/86
[2021-02-17 01:16] VITALS: BP 151/90
[2021-02-17] MEDS: HYDROmorphone 2 MG/ML, 1ML IVPush PRN ×2 (01:50→07:38)
[2021-02-17] MEDS: SODIUM CHLORIDE 0.9% 1,000 ML IV SCH (05:57)
[2021-02-17] MEDS: FOLIC ACID 1 MG TABLET PO SCH (07:37)
[2021-02-17] MEDS: POLYETHYLENE GLYCOL 17 GM PACKET PO PRN (07:37)
[2021-02-17] MEDS: ENOXAPARIN 40 MG/0.4 ML SQ SCH (07:37)
[2021-02-17] MEDS: FAMOTIDINE 20 MG/2 ML IVPush SCH (07:37)
[2021-02-17] MEDS: THIAMINE 100MG TABLET PO SCH (07:37)
[2021-02-17] MEDS: LABETALOL 5MG/ML, 20ML IVPush PRN (07:38)
[2021-02-17 07:54] VITALS: BP 158/102
[2021-02-17 09:11] VITALS: BP 138/95
[2021-02-17] MEDS ORDERED: HYDROcodone/APAP 10/325 MG TABLET PO PRN (10:00)
[2021-02-17] MEDS ORDERED: FOLI1TAB32 PO (11:26)
[2021-02-17] MEDS ORDERED: THIA100T67 PO (11:27)
== END 2021-02-17 15:18 | disposition home or self-care (01) | DRG 440 ==
LOC: ED 05:35 → 4NE 05:36
PROVIDERS: ADMIT Internal Medicine; ATTEND Hospitalist
DX: K85.20 Alcohol induced acute pancreatitis without necrosis or infection (principal); E87.6 Hypokalemia; F10.10 Alcohol abuse, uncomplicated; F17.200 Nicotine dependence, unspecified, uncomplicated; E11.9 Type 2 diabetes mellitus without complications; I10 Essential (primary) hypertension; Z83.3 Family history of diabetes mellitus; Z82.5 Family history of asthma and other chronic lower respiratory diseases; Z82.49 Family history of ischemic heart disease and other diseases of the circulatory system
CPT/HCPCS: 36415; 96374; 96375; 99285; J7121; 80048; 80053; 80320; 83690; 83735; 85025; G0378; J1170; J1650; J2405; J3411; J3475; J3480; G0480; J2270; J7030; J7120